=== PATIENT | female | born 1960 | race Caucasian/White ===

== ENCOUNTER 2017-07-24 05:37 | Emergency (ER) | payer OTHER ==
[~2017-07-24] VITALS: Ht 162.6 cm; Wt 90.7 kg
--- NOTE | 2017-07-24 06:33 | Diagnostic Imaging Report ---
EXAMINATION: CHEST 2 VIEWS INDICATION: Cough and fever COMPARISON: None FINDINGS: TUBES and LINES: None. LUNGS: Lungs are well inflated. Lungs are clear. There is no evidence of pneumonia or pulmonary edema. PLEURA: No pleural effusion or pneumothorax. HEART AND MEDIASTINUM: The cardiomediastinal silhouette is unremarkable. BONES AND SOFT TISSUES: No acute osseous lesion. Soft tissues are remarkable for multiple bilateral anterior chest surgical clips. UPPER ABDOMEN: No free air under the diaphragm. IMPRESSION: No acute thoracic abnormality. Signed by: Dr. Karel Carmona M.D. on 07/24/2017 6:30 AM
[2017-07-24 06:47] VITALS: BP 126/78
== END 2017-07-24 06:49 | disposition home or self-care (01) ==
LOC: ER 05:37
DX: R50.9 Fever, unspecified (principal); R05 Cough; J11.1 Influenza due to unidentified influenza virus with other respiratory manifestations; Z80.3 Family history of malignant neoplasm of breast
CPT/HCPCS: 71020; 87400; 99283